=== PATIENT | female | born 1960 | race Hispanic/Latino ===

== ENCOUNTER 2017-08-29 18:52 | Emergency (ER) | payer MEDICARE ==
[~2017-08-29] VITALS: Ht 149.9 cm; Wt 70.1 kg
[~2017-08-29 18:52] MED LIST: PHENERGAN25 M3 PO; Z.0.FLAGYL500 MG PO; Z.0.LEVAQUIN500 MG PO; Z.0.PEPCID40 MG PO; Z.0.VICODIN 5-5001 E PO
== END 2017-08-29 19:30 | disposition left against medical advice (07) ==
LOC: FSED 18:52
DX: S40.811A Abrasion of right upper arm, initial encounter (principal)

== ENCOUNTER 2023-11-18 12:44 | Emergency (ER) | payer MEDICARE, OTHER ==
[~2023-11-18] VITALS: Ht 149.9 cm; Wt 61.2 kg
[~2023-11-18 12:44] MED LIST changes: +GABAPENTIN300 MG PO; +IBUPROFEN200 MG PO; +TYLENOL325 MG PO; +VALACYCLOVIR500 MG PO
[2023-11-18 13:50] VITALS: PULSE 111; RESP 20; TEMP 98.8; O2SAT 96
[2023-11-18] MEDS ORDERED: SODIUM CHLORIDE 0.9% 1000ML 1,000 ML IV STA (14:03)
[2023-11-18] MEDS ORDERED: KETOROLAC TROMETHAMINE 30 MG/ML VIAL IV ONE (14:15)
[2023-11-18] MEDS ORDERED: FAMOTIDINE 20 MG/2 ML VIAL IV ONE (14:15)
[2023-11-18] MEDS ORDERED: ONDANSETRON HCL INJ 2MG/ML 2ML 2 MG/ML VIAL IV ONE (14:15)
== END 2023-11-18 14:10 | disposition left against medical advice (07) ==
LOC: FSED 12:50
DX: R10.32 Left lower quadrant pain (principal); R30.0 Dysuria; R00.0 Tachycardia, unspecified

== ENCOUNTER 2024-02-24 00:53 | Emergency (ER) | payer MEDICARE ==
[~2024-02-24] VITALS: Ht 149.9 cm; Wt 61.2 kg
[2024-02-24 01:03] VITALS: TEMP 98.3
[2024-02-24] MEDS: SODIUM CHLORIDE 0.9% 1000ML 1,000 ML IV STA (01:21)
[2024-02-24 01:23] LABS: BASOPHILS # (AUTO) 0.1 (0.0-0.1); EOSINOPHILS # (AUTO) 0.1 (0.0-0.4); EOSINOPHILS % 1.2 % (0.0-6.0); HEMATOCRIT 45.4 % (34.2-44.1); HEMOGLOBIN 15.5 g/dL (12.0-16.0); LYMPHOCYTES % 35.2 % (18.0-39.1); MEAN CORPUSCULAR HEMOGLOBIN 31.7 pg (28-32); MEAN CORPUSCULAR HGB CONC 34.1 g/dL (31-35); MEAN CORPUSCULAR VOLUME 92.8 fL (81-99); MONOCYTES # (AUTO) 0.6 (0.2-0.8); NEUTROPHILS # (AUTO) 4.6 (2.1-6.9); NEUTROPHILS % 55.4 % (38.7-80.0); PLATELET COUNT 291 x10e3/uL (140-360); RED BLOOD COUNT 4.89 x10e6/uL (3.6-5.1); RED CELL DISTRIBUTION WIDTH 12.1 % (11.7-14.4); WHITE BLOOD COUNT 8.37 x10e3/uL (4.8-10.8)
[2024-02-24 01:47] LABS: ALBUMIN 3.7 g/dL (3.5-5.0); ALBUMIN/GLOBULIN RATIO 0.6 (0.8-2.0); BILIRUBIN,TOTAL 0.2 mg/dL (0.2-1.2); CALCIUM 9.3 mg/dL (8.4-10.2); CREATININE, SERUM 0.84 mg/dL (0.57-1.11); TOTAL PROTEIN 9.4 g/dL (6.5-8.1)
[2024-02-24] MEDS ORDERED: IOPAMIDOL 370 MG/ML 100 ML INFUS..BTL INJ ONE (02:03)
[2024-02-24] MEDS: DICYCLOMINE HCL 20 MG/2 ML VIAL IM ONE (02:58)
[2024-02-24] MEDS ORDERED: DICYCLOMINE HCL20 MG PO (03:19)
[2024-02-24] MEDS ORDERED: OMEPRAZOLE40 MG PO (03:19)
[2024-02-24 03:30] VITALS: PULSE 83; RESP 19
[2024-02-24 03:48] VITALS: BP 124/71; O2SAT 98
== END 2024-02-24 03:45 | disposition home or self-care (01) ==
LOC: ER 00:59
DX: R10.11 Right upper quadrant pain (principal); E11.65 Type 2 diabetes mellitus with hyperglycemia; I10 Essential (primary) hypertension; E78.5 Hyperlipidemia, unspecified; Z86.73 Personal history of transient ischemic attack (TIA), and cerebral infarction without residual deficits
CPT/HCPCS: 36415; 74177; 80053; 83690; 85025; 99284; J0500; J7030; Q9967

== ENCOUNTER 2024-03-09 10:23 | Inpatient (IN) | payer MEDICARE ==
[~2024-03-09] VITALS: Ht 149.9 cm; Wt 61.2 kg
[~2024-03-09 10:23] MED LIST changes: +DICYCLOMINE HCL20 MG PO; +OMEPRAZOLE40 MG PO
[2024-03-09] MEDS: SODIUM CHLORIDE 0.9% 1000ML 1,000 ML IV STA (11:30)
[2024-03-09] MEDS: ONDANSETRON HCL INJ 2MG/ML 2ML 2 MG/ML VIAL IV STA ×2 (11:30→14:32)
[2024-03-09 11:31] LABS: BASOPHILS # (AUTO) 0.1 (0.0-0.1); BASOPHILS % 0.3 % (0.0-1.0); EOSINOPHILS # (AUTO) 0.1 (0.0-0.4); EOSINOPHILS % 0.3 % (0.0-6.0); HEMATOCRIT 46.3 % (34.2-44.1); HEMOGLOBIN 14.7 g/dL (12.0-16.0); LYMPHOCYTES # (AUTO) 1.2 (1.0-3.2); LYMPHOCYTES % 7.7 % (18.0-39.1); MEAN CORPUSCULAR HEMOGLOBIN 29.5 pg (28-32); MEAN CORPUSCULAR HGB CONC 31.7 g/dL (31-35); MEAN CORPUSCULAR VOLUME 92.8 fL (81-99); MONOCYTES # (AUTO) 1.4 (0.2-0.8); MONOCYTES % 8.5 % (4.4-11.3); NEUTROPHILS # (AUTO) 13.4 (2.1-6.9); NEUTROPHILS % 82.6 % (38.7-80.0); PLATELET COUNT 260 x10e3/uL (140-360); RED BLOOD COUNT 4.99 x10e6/uL (3.6-5.1); RED CELL DISTRIBUTION WIDTH 12.2 % (11.7-14.4)
[2024-03-09] MEDS: ACETAMINOPHEN 1000 MG/100 ML IV STA ×2 (11:31→15:28)
[2024-03-09 11:37] LABS: INR 0.94; PROTHROMBIN TIME 13.2 seconds (11.9-14.5)
[2024-03-09 11:38] LABS: PARTIAL THROMBOPLASTIN TIME 26.6 seconds (23.8-35.5)
[2024-03-09 11:46] LABS: ALANINE AMINOTRANSFERASE 21 IU/L (0-55); ALBUMIN 3.6 g/dL (3.5-5.0); ALBUMIN/GLOBULIN RATIO 0.8 (0.8-2.0); ALKALINE PHOSPHATASE 98 IU/L (40-150); ANION GAP 19.9 mmol/L (8-16); BILIRUBIN,TOTAL 1.2 mg/dL (0.2-1.2); BLOOD UREA NITROGEN 15 mg/dL (7-26); BUN/CREATININE RATIO 18 (6-25); CALCIUM 9.9 mg/dL (8.4-10.2); CARBON DIOXIDE 18 mmol/L (22-29); CHLORIDE 102 mmol/L (98-107); CREATINE KINASE 22 IU/L (29-168); CREATININE, SERUM 0.83 mg/dL (0.57-1.11); EST GLOMERULAR FILTRATION RATE 79 ML/MIN (>=60); GLUCOSE 310 mg/dL (74-118); LIPASE 37 U/L (8-78); MAGNESIUM 1.6 MG/DL (1.3-2.1); POTASSIUM 3.9 mmol/L (3.5-5.1); SODIUM 136 mmol/L (136-145); TOTAL PROTEIN 8.4 g/dL (6.5-8.1)
[2024-03-09 11:51] LABS: CORONAVIRUS COVID-19 AG NEGATIVE (NEGATIVE); INFLUENZA A AG NEGATIVE (NEGATIVE); INFLUENZA B AG NEGATIVE (NEGATIVE)
[2024-03-09 11:55] LABS: TROPONIN I < 0.001 ng/mL (0-0.300)
[2024-03-09] MEDS ORDERED: IOPAMIDOL 370 MG/ML 100 ML INFUS..BTL INJ ONE (11:59)
[2024-03-09 13:57] LABS: CLARITY,URINE TURBID (CLEAR); COLOR,URINE YELLOW (YELLOW); GLUCOSE, URINE 500 (NEGATIVE); KETONES,URINE 2+ (NEGATIVE); LEUKOCYTE ESTERASE ,URINE TRACE (NEGATIVE); NITRITE,URINE NEGATIVE (NEGATIVE); PH,URINE 6 (5 - 7); PROTEIN,URINE DIPSTICK >=300 (NEGATIVE); URINE UROBILINOGEN 0.2 mg/dL (0.2 - 1)
[2024-03-09 13:58] LABS: BILIRUBIN,URINE NEGATIVE (NEGATIVE)
[2024-03-09 13:59] LABS: BACTERIA,URINE MODERATE /HPF; EPITHELIAL CELLS,URINE FEW /LPF; WBC,URINE (MAN) >50 /HPF (0-5)
[2024-03-09] MEDS: IBUPROFEN 600 MG TAB PO STA (14:17)
[2024-03-09] MEDS: DICYCLOMINE HCL 20 MG/2 ML VIAL IM ONE (14:17)
[2024-03-09] MEDS ORDERED: ACETAMINOPHEN 1000 MG/100 ML 100 ML IV ONE (15:24)
[2024-03-09] MEDS: SODIUM CHLORIDE 0.9% 1000ML 1,000 ML IV SCH (15:29)
[2024-03-09] MEDS: Vancomycin IV 1 GM in SODIUM CHLORIDE 0.9% 250ML 250 ML IV ONE (15:32)
[2024-03-09 19:00] VITALS: PULSE 108; RESP 23; TEMP 99.3
[2024-03-09] MEDS: IBUPROFEN 600 MG TAB PO PRN (19:09)
[2024-03-09 20:00] VITALS: BP 99/66; PULSE 97; RESP 18; TEMP 97.9; O2SAT 99
[2024-03-09 21:37] VITALS: BP 99/66; PULSE 97; RESP 18; TEMP 97.9; O2SAT 99
[2024-03-09 21:42] VITALS: BP 99/66; PULSE 97; RESP 18; TEMP 97.9; O2SAT 99
[2024-03-10] VITALS (7 sets, daily range): BP systolic 97–114; BP diastolic 57–92; PULSE 77–84; RESP 17–20; TEMP 97.5–98.8; O2SAT 97–100
[2024-03-10] MEDS: ONDANSETRON HCL INJ 2MG/ML 2ML 2 MG/ML VIAL IV PRN (02:32)
[2024-03-10 06:57] LABS: BASOPHILS # (AUTO) 0.1 (0.0-0.1); BASOPHILS % 0.4 % (0.0-1.0); EOSINOPHILS # (AUTO) 0.1 (0.0-0.4); EOSINOPHILS % 0.6 % (0.0-6.0); HEMATOCRIT 36.9 % (34.2-44.1); HEMOGLOBIN 12.2 g/dL (12.0-16.0); LYMPHOCYTES # (AUTO) 1.6 (1.0-3.2); LYMPHOCYTES % 9.9 % (18.0-39.1); MEAN CORPUSCULAR HEMOGLOBIN 29.5 pg (28-32); MEAN CORPUSCULAR HGB CONC 33.1 g/dL (31-35); MEAN CORPUSCULAR VOLUME 89.1 fL (81-99); MONOCYTES # (AUTO) 1.8 (0.2-0.8); MONOCYTES % 11.5 % (4.4-11.3); NEUTROPHILS # (AUTO) 12.3 (2.1-6.9); NEUTROPHILS % 77.2 % (38.7-80.0); PLATELET COUNT 220 x10e3/uL (140-360); RED BLOOD COUNT 4.14 x10e6/uL (3.6-5.1); RED CELL DISTRIBUTION WIDTH 12.4 % (11.7-14.4); WHITE BLOOD COUNT 15.95 x10e3/uL (4.8-10.8)
[2024-03-10 07:26] LABS: ALBUMIN 2.7 g/dL (3.5-5.0); ALBUMIN/GLOBULIN RATIO 0.7 (0.8-2.0); ANION GAP 13.4 mmol/L (8-16); BILIRUBIN,TOTAL 0.7 mg/dL (0.2-1.2); CALCIUM 8.7 mg/dL (8.4-10.2); CREATININE, SERUM 0.75 mg/dL (0.57-1.11); TOTAL PROTEIN 6.5 g/dL (6.5-8.1)
[2024-03-10 07:27] LABS: POTASSIUM 3.4 mmol/L (3.5-5.1)
[2024-03-10] MEDS ORDERED: DEXTROSE 50% SYRINGE 50 ML IV PRN (10:30)
[2024-03-10] MEDS: INSULIN REGULAR, HUMAN 100 UNIT/1 ML SQ SCH (12:17)
[2024-03-10] MEDS ORDERED: PROMETHAZINE HCL 25 MG TAB PO PRN (12:30)
[2024-03-10] MEDS: GABAPENTIN 300 MG CAP PO SCH (17:23)
[2024-03-10] MEDS: HYDROMORPHONE 1MG/1ML INJ IV PRN (20:35)
[2024-03-11] VITALS (10 sets, daily range): BP systolic 76–135; BP diastolic 64–83; PULSE 63–101; RESP 17–19; TEMP 97.4–98.6; O2SAT 96–100
[2024-03-11] MEDS: ACETAMINOPHEN 325 MG TAB PO PRN (05:33)
[2024-03-11] MEDS: DICYCLOMINE HCL 20 MG TAB PO PRN (05:33)
[2024-03-11 06:28] LABS: BASOPHILS # (AUTO) 0.1 (0.0-0.1); BASOPHILS % 0.5 % (0.0-1.0); EOSINOPHILS # (AUTO) 0.1 (0.0-0.4); EOSINOPHILS % 0.6 % (0.0-6.0); HEMATOCRIT 38.2 % (34.2-44.1); HEMOGLOBIN 11.7 g/dL (12.0-16.0); LYMPHOCYTES # (AUTO) 1.9 (1.0-3.2); LYMPHOCYTES % 18.7 % (18.0-39.1); MEAN CORPUSCULAR HGB CONC 30.6 g/dL (31-35); MEAN CORPUSCULAR VOLUME 97.9 fL (81-99); MONOCYTES # (AUTO) 0.9 (0.2-0.8); MONOCYTES % 8.9 % (4.4-11.3); NEUTROPHILS # (AUTO) 7.3 (2.1-6.9); NEUTROPHILS % 70.8 % (38.7-80.0); PLATELET COUNT 225 x10e3/uL (140-360); RED CELL DISTRIBUTION WIDTH 12.4 % (11.7-14.4); WHITE BLOOD COUNT 10.27 x10e3/uL (4.8-10.8)
[2024-03-11 06:52] LABS: ANION GAP 12.9 mmol/L (8-16); CALCIUM 8.9 mg/dL (8.4-10.2); CREATININE, SERUM 0.68 mg/dL (0.57-1.11); POTASSIUM 3.9 mmol/L (3.5-5.1)
[2024-03-11] MEDS: PANTOPRAZOLE SOD 40 MG TABEC PO SCH (08:30)
[2024-03-11] MEDS: ACETAMINOPHEN/CODEINE 300MG - 30MG TAB PO PRN (17:24)
[2024-03-12] VITALS (8 sets, daily range): BP systolic 103–133; BP diastolic 67–79; PULSE 65–79; RESP 17–18; TEMP 97.6–98.5; O2SAT 98–100
[2024-03-12 08:33] LABS: BASOPHILS % 0.3 % (0.0-1.0); EOSINOPHILS # (AUTO) 0.1 (0.0-0.4); EOSINOPHILS % 0.9 % (0.0-6.0); HEMOGLOBIN 11.8 g/dL (12.0-16.0); LYMPHOCYTES % 28.7 % (18.0-39.1); MEAN CORPUSCULAR HEMOGLOBIN 29.3 pg (28-32); MEAN CORPUSCULAR HGB CONC 31.9 g/dL (31-35); MEAN CORPUSCULAR VOLUME 91.8 fL (81-99); MONOCYTES # (AUTO) 0.6 (0.2-0.8); MONOCYTES % 9.1 % (4.4-11.3); NEUTROPHILS # (AUTO) 4.2 (2.1-6.9); NEUTROPHILS % 60.4 % (38.7-80.0); PLATELET COUNT 230 x10e3/uL (140-360); RED BLOOD COUNT 4.03 x10e6/uL (3.6-5.1); RED CELL DISTRIBUTION WIDTH 12.4 % (11.7-14.4)
[2024-03-12 09:06] LABS: ANION GAP 15.2 mmol/L (8-16); CALCIUM 9.4 mg/dL (8.4-10.2); CREATININE, SERUM 0.75 mg/dL (0.57-1.11); POTASSIUM 4.2 mmol/L (3.5-5.1)
[2024-03-13] VITALS (10 sets, daily range): BP systolic 99–148; BP diastolic 64–82; PULSE 64–97; RESP 17–18; TEMP 97.4–98; O2SAT 97–100
[2024-03-13 07:23] LABS: BASOPHILS % 0.4 % (0.0-1.0); EOSINOPHILS # (AUTO) 0.1 (0.0-0.4); EOSINOPHILS % 1.2 % (0.0-6.0); HEMATOCRIT 40.9 % (34.2-44.1); HEMOGLOBIN 12.7 g/dL (12.0-16.0); LYMPHOCYTES # (AUTO) 2.9 (1.0-3.2); LYMPHOCYTES % 35.7 % (18.0-39.1); MEAN CORPUSCULAR HEMOGLOBIN 29.8 pg (28-32); MEAN CORPUSCULAR HGB CONC 31.1 g/dL (31-35); MONOCYTES # (AUTO) 0.8 (0.2-0.8); MONOCYTES % 9.7 % (4.4-11.3); NEUTROPHILS # (AUTO) 4.2 (2.1-6.9); PLATELET COUNT 282 x10e3/uL (140-360); RED BLOOD COUNT 4.26 x10e6/uL (3.6-5.1); RED CELL DISTRIBUTION WIDTH 11.9 % (11.7-14.4); WHITE BLOOD COUNT 8.15 x10e3/uL (4.8-10.8)
[2024-03-13 07:37] LABS: ANION GAP 16.2 mmol/L (8-16); CALCIUM 9.3 mg/dL (8.4-10.2); CREATININE, SERUM 0.71 mg/dL (0.57-1.11); POTASSIUM 4.2 mmol/L (3.5-5.1)
[2024-03-13] MEDS: DOCUSATE SODIUM 100 MG CAP PO ONE (11:42)
[2024-03-13] MEDS: TRIMETHOPRIM/SULFAMETHOXAZOLE 160-800 MG TAB PO SCH (16:10)
[2024-03-14 00:05] VITALS: BP 129/75; PULSE 71; RESP 17; TEMP 97.4; O2SAT 100
[2024-03-14 04:04] VITALS: BP 126/72; PULSE 68; RESP 17; TEMP 97.4; O2SAT 100
[2024-03-14 07:16] LABS: CALCIUM 9.1 mg/dL (8.4-10.2); CREATININE, SERUM 0.74 mg/dL (0.57-1.11)
[2024-03-14 08:00] VITALS: BP 134/76; PULSE 73; RESP 18; TEMP 98.3; O2SAT 100
[2024-03-14 09:33] VITALS: BP 126/72; PULSE 68; RESP 17; TEMP 97.4; O2SAT 100
[2024-03-14 12:00] VITALS: BP 119/69; PULSE 80; RESP 19; TEMP 98.1; O2SAT 100
[2024-03-14] MEDS ORDERED: BACTRIM DS TAB1 EACH PO (13:38)
[2024-03-14] MEDS ORDERED: LEVOFLOXACIN250 MG PO (13:38)
== END 2024-03-14 16:08 | disposition home or self-care (01) | DRG 690 ==
LOC: ER 10:33 → ERHOLD 14:57 → MED/SURG3 21:04
PROVIDERS: ADMIT Internal Medicine; ATTEND Internal Medicine
DX: N39.0 Urinary tract infection, site not specified (principal); Q60.0 Renal agenesis, unilateral; B95.62 Methicillin resistant Staphylococcus aureus infection as the cause of diseases classified elsewhere; B96.20 Unspecified Escherichia coli [E. coli] as the cause of diseases classified elsewhere; E11.69 Type 2 diabetes mellitus with other specified complication; R51.9 Headache, unspecified; I10 Essential (primary) hypertension; E78.5 Hyperlipidemia, unspecified; R00.0 Tachycardia, unspecified; Z11.52 Encounter for screening for COVID-19; Z86.73 Personal history of transient ischemic attack (TIA), and cerebral infarction without residual deficits; Z79.899 Other long term (current) drug therapy; Z79.84 Long term (current) use of oral hypoglycemic drugs
CPT/HCPCS: 36415; 71045; 74177; 80048; 80053; 81001; 82550; 82948; 83036; 83605; 83690; 83735; 84484; 85025; 85610; 85730; 87040; 87086; 87186; 93005; 99284; J1171; J2405; J2470; J2543; J7030; J7050; Q9967

== ENCOUNTER 2024-04-17 16:10 | Emergency (ER) | payer MEDICARE ==
[~2024-04-17] VITALS: Ht 149.9 cm; Wt 56.7 kg
[~2024-04-17 16:10] MED LIST changes: +BACTRIM DS TAB1 EACH PO; +LEVOFLOXACIN250 MG PO
[2024-04-17 18:00] LABS: BASOPHILS % 0.4 % (0.0-1.0); EOSINOPHILS # (AUTO) 0.1 (0.0-0.4); EOSINOPHILS % 0.6 % (0.0-6.0); HEMATOCRIT 42.5 % (34.2-44.1); HEMOGLOBIN 14.4 g/dL (12.0-16.0); LYMPHOCYTES # (AUTO) 2.1 (1.0-3.2); LYMPHOCYTES % 19.5 % (18.0-39.1); MEAN CORPUSCULAR HEMOGLOBIN 29.6 pg (28-32); MEAN CORPUSCULAR HGB CONC 33.9 g/dL (31-35); MEAN CORPUSCULAR VOLUME 87.3 fL (81-99); MONOCYTES # (AUTO) 0.6 (0.2-0.8); MONOCYTES % 5.9 % (4.4-11.3); NEUTROPHILS # (AUTO) 7.9 (2.1-6.9); NEUTROPHILS % 73.3 % (38.7-80.0); PLATELET COUNT 295 x10e3/uL (140-360); RED BLOOD COUNT 4.87 x10e6/uL (3.6-5.1); RED CELL DISTRIBUTION WIDTH 12.4 % (11.7-14.4); WHITE BLOOD COUNT 10.75 x10e3/uL (4.8-10.8)
[2024-04-17 18:05] LABS: BILIRUBIN,URINE NEGATIVE (NEGATIVE); CLARITY,URINE HAZY (CLEAR); COLOR,URINE YELLOW (YELLOW); GLUCOSE, URINE >=1000 (NEGATIVE); INR 0.84; KETONES,URINE TRACE (NEGATIVE); LEUKOCYTE ESTERASE ,URINE NEGATIVE (NEGATIVE); NITRITE,URINE NEGATIVE (NEGATIVE); PH,URINE 7 (5 - 7); PROTEIN,URINE DIPSTICK TRACE (NEGATIVE); URINE UROBILINOGEN 0.2 mg/dL (0.2 - 1)
[2024-04-17 18:06] LABS: BACTERIA,URINE FEW /HPF; EPITHELIAL CELLS,URINE FEW /LPF; PARTIAL THROMBOPLASTIN TIME 24.7 seconds (23.8-35.5); RBC,URINE 0-5 /HPF (0-5); WBC,URINE (MAN) 0-5 /HPF (0-5)
[2024-04-17] MEDS: SODIUM CHLORIDE 0.9% 1000ML 1,000 ML IV STA (18:09)
[2024-04-17 18:15] LABS: ALANINE AMINOTRANSFERASE 33 IU/L (0-55); ALBUMIN 3.5 g/dL (3.5-5.0); ALBUMIN/GLOBULIN RATIO 0.8 (0.8-2.0); ALKALINE PHOSPHATASE 107 IU/L (40-150); ANION GAP 14.8 mmol/L (8-16); BILIRUBIN,TOTAL 0.3 mg/dL (0.2-1.2); BLOOD UREA NITROGEN 22 mg/dL (7-26); BUN/CREATININE RATIO 22 (6-25); CALCIUM 9.5 mg/dL (8.4-10.2); CARBON DIOXIDE 22 mmol/L (22-29); CHLORIDE 102 mmol/L (98-107); CREATININE, SERUM 0.98 mg/dL (0.57-1.11); EST GLOMERULAR FILTRATION RATE 64 ML/MIN (>=60); GLUCOSE 383 mg/dL (74-118); MAGNESIUM 1.7 MG/DL (1.3-2.1); POTASSIUM 3.8 mmol/L (3.5-5.1); SODIUM 135 mmol/L (136-145); TOTAL PROTEIN 7.8 g/dL (6.5-8.1)
[2024-04-17 18:22] LABS: TROPONIN I < 0.001 ng/mL (0-0.300)
[2024-04-17 18:29] VITALS: PULSE 77; RESP 16; TEMP 98.6
[2024-04-17] MEDS ORDERED: CYCLOBENZAPRINE5 MG PO (20:45)
[2024-04-17] MEDS ORDERED: NAPROSYN500 MG PO (20:45)
[2024-04-17] MEDS: HYDROMORPHONE 1MG/1ML INJ IV STA (21:01)
[2024-04-17] MEDS: ONDANSETRON HCL INJ 2MG/ML 2ML 2 MG/ML VIAL IV STA (21:02)
[2024-04-17 21:07] VITALS: BP 130/78; PULSE 75; RESP 16; TEMP 98.4; O2SAT 97
== END 2024-04-17 21:13 | disposition home or self-care (01) ==
LOC: ER 19:27
DX: R10.30 Lower abdominal pain, unspecified (principal); R11.2 Nausea with vomiting, unspecified; N20.0 Calculus of kidney; E11.65 Type 2 diabetes mellitus with hyperglycemia; I10 Essential (primary) hypertension; E78.5 Hyperlipidemia, unspecified; Z86.73 Personal history of transient ischemic attack (TIA), and cerebral infarction without residual deficits; Z87.19 Personal history of other diseases of the digestive system; F17.210 Nicotine dependence, cigarettes, uncomplicated
CPT/HCPCS: 36415; 71045; 74176; 80053; 81001; 83735; 84484; 85025; 85610; 85730; 87086; 87186; 99283; J1171; J7030

== ENCOUNTER 2024-10-17 13:05 | Inpatient (IN) | payer MEDICARE ==
[~2024-10-17] VITALS: Ht 149.9 cm; Wt 56.7 kg
[~2024-10-17 13:05] MED LIST changes: +CYCLOBENZAPRINE5 MG PO; +NAPROSYN500 MG PO
[2024-10-17 14:11] LABS: BASOPHILS % 0.7 % (0.0-1.0); EOSINOPHILS % 0.5 % (0.0-6.0); LYMPHOCYTES % 24.3 % (18.0-39.1); MONOCYTES % 6.1 % (4.4-11.3); NEUTROPHILS % 68.1 % (38.7-80.0); RED CELL DISTRIBUTION WIDTH 12.1 % (11.7-14.4)
[2024-10-17 14:49] LABS: EST GLOMERULAR FILTRATION RATE 81 ML/MIN (>=60)
[2024-10-17] MEDS: SODIUM CHLORIDE 0.9% 1000ML 1,000 ML IV STA ×3 (14:49→19:05)
[2024-10-17 15:01] LABS: ABG PCO2 26 mmHg (35-45); ABG PH 7.50 (7.35-7.45); ABG PO2 162 mmHg (80-105)
[2024-10-17 15:02] LABS: ABG BASE EXCESS -2.0 mmol/L (-2 - 3); ABG HCO3 20 mmol/L (22-26); ABG OXYGEN SATURATION 100.0 % (95-98); ABG TCO2 22
[2024-10-17] MEDS: ACETAMINOPHEN 325 MG TAB PO STA (16:58)
[2024-10-17] MEDS: ONDANSETRON HCL INJ 2MG/ML 2ML 2 MG/ML VIAL IV STA (17:16)
[2024-10-17] MEDS ORDERED: IOPAMIDOL 370 MG/ML 100 ML INFUS..BTL INJ ONE (17:46)
[2024-10-17 19:58] VITALS: TEMP 98
[2024-10-17 21:00] VITALS: PULSE 88; RESP 16
[2024-10-17] MEDS: SODIUM CHLORIDE 0.9% 1000ML 1,000 ML IV SCH (21:28)
[2024-10-17] MEDS: ACETAMINOPHEN/CODEINE 300MG - 30MG TAB PO PRN (23:15)
[2024-10-17] MEDS: ONDANSETRON HCL INJ 2MG/ML 2ML 2 MG/ML VIAL IV PRN (23:15)
[2024-10-18] VITALS (11 sets, daily range): BP systolic 107–147; BP diastolic 75–93; PULSE 68–102; RESP 18; TEMP 97.3–98.5; O2SAT 97–100
[2024-10-18 07:44] LABS: BASOPHILS % 0.9 % (0.0-1.0); EOSINOPHILS % 1.5 % (0.0-6.0); LYMPHOCYTES % 30.7 % (18.0-39.1); MONOCYTES % 8.1 % (4.4-11.3); NEUTROPHILS % 58.4 % (38.7-80.0); RED CELL DISTRIBUTION WIDTH 12.2 % (11.7-14.4)
[2024-10-18 08:04] LABS: EST GLOMERULAR FILTRATION RATE 99.0 ML/MIN (>=60)
[2024-10-18] MEDS ORDERED: ACETAMINOPHEN 325 MG TAB PO PRN (12:45)
[2024-10-18] MEDS ORDERED: ALBUTEROL/IPRATROPIUM 3 ML NEB NEB PRN (12:45)
[2024-10-18] MEDS ORDERED: POTASSIUM CHLORIDE 20 MEQ TAB CR PO PRN (12:45)
[2024-10-18] MEDS ORDERED: HYDRALAZINE HCL 20 MG/ML VIAL IV PRN (12:45)
[2024-10-18] MEDS ORDERED: BENZONATATE 100 MG CAP PO PRN (12:45)
[2024-10-18] MEDS ORDERED: DIPHENHYDRAMINE HCL 25 MG CAP PO PRN (12:45)
[2024-10-18] MEDS ORDERED: LIDOCAINE 4% PATCH TP PRN (12:45)
[2024-10-18] MEDS ORDERED: DEXTROSE 50% SYRINGE 50 ML IV PRN ×2 (12:45→13:15)
[2024-10-18] MEDS ORDERED: DOCUSATE SODIUM 100 MG CAP PO PRN (12:45)
[2024-10-18] MEDS ORDERED: SIMETHICONE 80 MG CHEW PO PRN (12:45)
[2024-10-18] MEDS: ASPIRIN 81 MG ENTERIC COATED PO SCH (18:02)
[2024-10-18] MEDS: ENOXAPARIN SOD INJ 40 MG/0.4 ML SYR SC SCH (18:02)
[2024-10-18] MEDS: INSULIN LISPRO 100 UNIT/1 ML 3ML VIAL SQ SCH (18:05)
[2024-10-18] MEDS: INSULIN GLARGINE 100 UNITS/ML VIAL SQ SCH (20:22)
[2024-10-18] MEDS ORDERED: MELATONIN 5 MG TABLET PO PRN (21:00)
[2024-10-18] MEDS ORDERED: INSULIN GLARGINE 100 UNITS/ML VIAL SQ SCH (21:00)
[2024-10-18] MEDS: METOCLOPRAMIDE HCL 10 MG/2ML VIAL IV SCH (21:00)
[2024-10-19] VITALS (11 sets, daily range): BP systolic 98–133; BP diastolic 59–93; PULSE 58–102; RESP 16–19; TEMP 97–98.8; O2SAT 95–100
[2024-10-19] MEDS: METOCLOPRAMIDE HCL 10 MG/2ML VIAL IV SCH (00:19)
[2024-10-19] MEDS: ACETAMIN/BUTALBITAL/CAFFEINE TAB PO PRN (06:03)
[2024-10-19 06:36] LABS: BASOPHILS % 0.3 % (0.0-1.0); EOSINOPHILS % 0.9 % (0.0-6.0); LYMPHOCYTES % 28.1 % (18.0-39.1); MONOCYTES % 7.2 % (4.4-11.3); NEUTROPHILS % 63.2 % (38.7-80.0); RED CELL DISTRIBUTION WIDTH 12.2 % (11.7-14.4)
[2024-10-19 06:55] LABS: CHOL/HDL RATIO 9.1 (3.0-3.6); EST GLOMERULAR FILTRATION RATE 100 ML/MIN (>=60); PHOSPHORUS 4.1 MG/DL (2.3-4.7)
[2024-10-19] MEDS: PANTOPRAZOLE SOD 40 MG TABEC PO SCH (09:22)
[2024-10-19] MEDS: ATORVASTATIN 40 MG TAB PO SCH (21:24)
[2024-10-20] VITALS (11 sets, daily range): BP systolic 110–150; BP diastolic 56–84; PULSE 63–78; RESP 16–21; TEMP 97–97.9; O2SAT 96–100
[2024-10-20 06:20] LABS: BASOPHILS % 0.6 % (0.0-1.0); EOSINOPHILS % 2.4 % (0.0-6.0); LYMPHOCYTES % 29.9 % (18.0-39.1); MONOCYTES % 7.7 % (4.4-11.3); NEUTROPHILS % 59.1 % (38.7-80.0); RED CELL DISTRIBUTION WIDTH 12.3 % (11.7-14.4)
[2024-10-20 08:23] LABS: EST GLOMERULAR FILTRATION RATE 98.0 ML/MIN (>=60)
[2024-10-20] MEDS: LORAZEPAM INJ 2 MG/ML VIAL IV PRN (09:55)
[2024-10-21] VITALS (9 sets, daily range): BP systolic 110–142; BP diastolic 69–85; PULSE 65–96; RESP 16–18; TEMP 97.4–98.8; O2SAT 98–100
[2024-10-21] MEDS ORDERED: REGADENOSON 0.4 MG/5 ML SYR IV ONE (09:47)
[2024-10-21] MEDS ORDERED: ATORVASTATIN CA40 MG PO (13:47)
[2024-10-21] MEDS ORDERED: Insulin Glargine SQ (13:47)
[2024-10-21] MEDS ORDERED: TRICOR145 MG PO (13:47)
[2024-10-21] MEDS ORDERED: ASPIRIN EC81 MG PO (13:47)
[2024-10-21] MEDS: FENOFIBRATE 145 MG TAB PO SCH (14:32)
[2024-10-21] MEDS: FOSFOMYCIN TROMETHAMINE 3 GM PACKET PO ONE (15:33)
[2024-10-21] MEDS ORDERED: ATORVASTATIN 40 MG TAB PO SCH (21:00)
[2024-10-26 06:35] LABS: ABG BASE EXCESS -2.0 mmol/L (-2 - 3); ABG HCO3 21 mmol/L (22-26); ABG OXYGEN SATURATION 100.0 % (95-98); ABG PCO2 26 mmHg (35-45); ABG PH 7.51 (7.35-7.45); ABG PO2 162 mmHg (80-105); ABG TCO2 22
== END 2024-10-21 18:30 | disposition home or self-care (01) | DRG 74 ==
LOC: ER 13:12 → ERHOLD 18:45 → MED/SURG2 22:42 → OBSVTOIN 10-18 12:46
PROVIDERS: ADMIT Internal Medicine; ATTEND Internal Medicine
DX: E11.43 Type 2 diabetes mellitus with diabetic autonomic (poly)neuropathy (principal); Q60.0 Renal agenesis, unilateral; I69.351 Hemiplegia and hemiparesis following cerebral infarction affecting right dominant side; Z16.12 Extended spectrum beta lactamase (ESBL) resistance; N30.90 Cystitis, unspecified without hematuria; R10.9 Unspecified abdominal pain; E11.65 Type 2 diabetes mellitus with hyperglycemia; I10 Essential (primary) hypertension; E78.5 Hyperlipidemia, unspecified; E66.9 Obesity, unspecified; E86.0 Dehydration; K31.84 Gastroparesis; K62.89 Other specified diseases of anus and rectum; G43.909 Migraine, unspecified, not intractable, without status migrainosus; R13.10 Dysphagia, unspecified; R07.89 Other chest pain; K57.90 Diverticulosis of intestine, part unspecified, without perforation or abscess without bleeding; R53.81 Other malaise; M62.561 Muscle wasting and atrophy, not elsewhere classified, right lower leg; I67.1 Cerebral aneurysm, nonruptured; I25.10 Atherosclerotic heart disease of native coronary artery without angina pectoris; F40.240 Claustrophobia; Z91.148 Patient's other noncompliance with medication regimen for other reason; Z68.25 Body mass index [BMI] 25.0-25.9, adult
CPT/HCPCS: 36415; 36600; 70450; 70544; 70551; 71045; 74177; 76770; 78452; 80048; 80053; 80061; 82550; 82805; 82948; 83036; 83690; 83735; 83880; 84100; 84443; 84478; 84484; 85025; 87086; 87186; 93005; 93017; 93306; 93880; 94799; 99284; A9502; G0378; J1650; J1815; J2060; J2185; J2405; J2470; J2543; J2765; J7030; Q9967